=== PATIENT | female | born 1960 | race Caucasian/White ===

== ENCOUNTER 2016-07-23 14:04 | Outpatient (CLI) ==
[2014-05-02 16:34] VITALS: BMI 31.2
--- NOTE | 2016-07-23 14:51 | DI ---
EXAM: Four x-rays of the cervical spine. Comparison: None available. Reason for exam: Disc degeneration. FINDINGS: Operative changes are seen after anterior cervical discectomy and fusion spanning C5-C6. The cervical spine below C6 is not seen secondary to summation artifact. No acute fracture or listh esis. The dens is intact on the Wheeler view. There is maintenance of the cervical lordotic curve. No abnormal prevertebral soft tissue swelling. Impression: 1. ACDF C5-6 without evidence of hardware complication. 2. No acute fracture or listhesis in the imaged portions of the cervical spine. 3. The cervical spine inferior to the C6 vertebral body is not seen secondary to summation.
--- NOTE | 2016-07-23 14:57 | DI ---
EXAM: Three views of the lumbar spine HISTORY: Degenerative disease of the spine. COMPARISON: None FINDINGS: There is no acute compression fracture or subluxation. There is minimal narrowing at L4-L 5 and L5-S1 with minimal disc osteophytes. There is facet arthropathy in the lower lumbar spine. T here is no abnormal scoliosis/curvature. The soft tissues are unremarkable. IMPRESSION: 1. No acute compression fracture or subluxation. 2. Degenerative change with disc space narrowing and facet arthropathy in the lower lumbar spine.
== END 2016-07-23 14:05 | disposition home or self-care (01) ==
LOC: RAD 14:04
PROVIDERS: ATTEND Pain Medicine Interventional Pain Medicine
DX: M51.16 Intervertebral disc disorders with radiculopathy, lumbar region (principal); M51.17 Intervertebral disc disorders with radiculopathy, lumbosacral region; M51.37 Other intervertebral disc degeneration, lumbosacral region; M50.320 Other cervical disc degeneration, mid-cervical region, unspecified level; M50.31 Other cervical disc degeneration, high cervical region

== ENCOUNTER 2018-07-26 12:28 | Outpatient (CLI) ==
[2014-05-02 16:34] VITALS: BMI 31.2
--- NOTE | 2018-07-26 13:09 | CT ---
EXAM: CT of the lumbar spine without contrast History: Lower back pain. Technique: Multiplanar CT images through the lumbar spine were obtained without the administration o f IV contrast Findings: 2 mm calculus within the right kidney. No acute fracture or subluxation of the lumbar spine. Severe disc space narrowing at L5-S1 and moder ate disc space narrowing at L4-L5 with endplate sclerosis and osteophyte formation. Mild to moderate disc space narrowing seen elsewhere. There are several small sclerotic lesions seen within the pelv ic bones. T12-L1: No significant bony central canal stenosis or bony neural foraminal narrowing. L1-L2: No significant bony central canal stenosis or bony neural foraminal narrowing. L2-L3: Small disc bulge effacing anterior thecal sac with mild central canal stenosis. Mild to mode rate bilateral bony neural foraminal narrowing secondary to ligamentous and facet hypertrophy. L3-L4: Small disc bulge effacing anterior thecal sac with mild central canal stenosis. Mild to mode rate bilateral bony neural foraminal narrowing secondary to ligamentous and facet hypertrophy. L4-L5: Small disc bulge effacing anterior thecal sac with mild central canal stenosis. Moderate to severe left and mild to moderate right bony neural foraminal narrowing secondary to ligamentous and f acet hypertrophy. L5-S1: No significant bony central canal stenosis. Moderate to severe bilateral bony neural foramin al narrowing secondary to ligamentous and facet hypertrophy. Within the subcutaneous soft tissues posterior to L1, there is a focal area of fluid or phlegmonous c hange measuring 1.8 cm x 2.1 cm with small focus of air. Impression: 1. No acute osseous abnormality of the lumbar spine. 2. Severe degenerative disc disease at L5-S1 and moderate degenerative disc disease at L4-L5 . 3. Level by level analysis as detailed above 4. Focal area of fluid or phlegmonous change in the subcutaneous soft tissues posterior to L1. Ricardo elate clinically. 5. Nonobstructing right nephrolithiasis
== END 2018-07-26 12:29 | disposition home or self-care (01) ==
LOC: RAD 12:28
PROVIDERS: ATTEND Pain Medicine Interventional Pain Medicine
DX: M51.16 Intervertebral disc disorders with radiculopathy, lumbar region (principal); M51.17 Intervertebral disc disorders with radiculopathy, lumbosacral region; M51.36 Other intervertebral disc degeneration, lumbar region; M51.37 Other intervertebral disc degeneration, lumbosacral region